=== PATIENT | female | born 1975 ===

== ENCOUNTER 2017-06-26 15:27 | Observation (INO) | payer MEDICAID ==
[2017-06-26] MEDS ORDERED: Sodium Chloride 0.9% 1,000 ML IV STA (15:45)
[2017-06-26 16:20] LABS: URINE BILIRUBIN SMALL (NEGATIVE); URINE BLOOD SMALL (NEGATIVE); URINE GLUCOSE (UA) NEGATIVE (NEGATIVE); URINE KETONE 40 mg/dL (NEGATIVE); URINE LEUKOCYTE ESTERASE NEGATIVE Leu/uL (NEGATIVE); URINE PROTEIN NEGATIVE mg/dL (<30 mg/dL); URINE UROBILINOGEN 0.2 E.U./dL (<1 E.U./dL)
[2017-06-26 16:27] LABS: URINE APPEARANCE SL CLOUDY (CLEAR); URINE COLOR YELLOW (YELLOW)
[2017-06-26 16:44] LABS: URINE BACTERIA MANY (NEG)
--- NOTE | 2017-06-26 16:45 | ED PDOC ---
"Arrival/HPI - General Chief Complaint: Abdominal Pain Time Seen by Provider: 06/26/17 15:31 Historian: Patient - History of Present Illness Narrative History of Present Illness (Text): 06/26/17 16:43 42-year-old female presents today with worsening diffuse abdominal pain. Patient states the pain started yesterday and has been gradually worsening. Patient states she was seen at another hospital and was told that she had only an ovarian cyst. Patient states she does have a history of gastritis. Patient states she has nausea without vomiting. The patient is complaining of diarrhea. She is complaining of diffuse abdominal pain that does not radiate to the back. She denies any urinary symptoms. Denies vaginal bleeding or vaginal discharge patient denies chest pain or shortness of breath. No other complaints. Time/Duration: Other (2 days) Symptom Onset: Sudden Symptom Course: Worsening Quality: Aching Severity Level: Moderate Past Medical History - Provider Review Nursing Documentation Reviewed: Yes - Travel History Have you recently traveled outside [place] w/in the past 3 mons?: No - Tetanus Immunization Tetanus Immunization: Unknown - Cardiac Hx Cardiac Disorders: No - Pulmonary Hx Respiratory Disorders: Yes Hx Asthma: Yes - Neurological Hx Neurological Disorder: No - HEENT Hx HEENT Disorder: No Hx Blind: No - Renal Hx Renal Disorder: No - Endocrine/Metabolic Hx Endocrine Disorders: No - Hematological/Oncological Hx Blood Disorders: No - Integumentary Hx Dermatological Disorder: No - Musculoskeletal/Rheumatological Hx Musculoskeletal Disorders: No - Gastrointestinal Hx Gastrointestinal Disorders: Yes Hx Gastritis: Yes - Genitourinary/Gynecological Hx Genitourinary Disorders: No - Psychiatric Hx Psychophysiologic Disorder: No Hx Substance Use: No Family/Social History - Physician Review Nursing Documentation Reviewed: Yes Family/Social History: Unknown Family HX Smoking Status: Light Smoker < 10 Cigarettes Daily Hx Alcohol Use: No Hx Substance Use: No Allergies/Home Meds Allergies/Adverse Reactions: Allergies Penicillins Adverse Reaction (Verified 06/26/17 15:39) VOMITING Home Medications: Home Meds Medication Instructions Recorded Confirmed No Known Home Med 06/26/17 06/26/17 Review of Systems - Review of Systems Constitutional: absent: Fatigue, Fevers Respiratory: absent: SOB, Cough Cardiovascular: absent: Chest Pain, Palpitations Gastrointestinal: Abdominal Pain, Diarrhea, Nausea. absent: Constipation, Vomiting Genitourinary Female: absent: Dysuria, Frequency, Hematuria, Vaginal Bleeding, Vaginal Discharge Musculoskeletal: absent: Arthralgias, Back Pain, Neck Pain Skin: absent: Rash, Pruritis Psychiatric: absent: Anxiety, Depression Physical Exam Vital Signs Reviewed: Yes Vital Signs Temp Pulse Resp BP Pulse Ox 06/26/17 20:12 68 18 145/90 100 06/26/17 18:27 73 18 118/80 100 06/26/17 15:40 97.8 F 73 16 128/83 99 Temperature: Afebrile Blood Pressure: Normal Pulse: Regular Respiratory Rate: Normal Appearance: Positive for: Well-Appearing, Non-Toxic, Comfortable Pain Distress: None Mental Status: Positive for: Alert and Oriented X 3 - Systems Exam Head: Present: Atraumatic Mouth: Present: Moist Mucous Membranes Neck: Present: Normal Range of Motion Respiratory/Chest: Present: Clear to Auscultation, Good Air Exchange. No: Respiratory Distress, Accessory Muscle Use Cardiovascular: Present: Regular Rate and Rhythm, Normal S1, S2. No: Murmurs Abdomen: Present: Tenderness (Diffuse abdominal tenderness), Normal Bowel Sounds , Guarding. No: Distention, Peritoneal Signs, Rebound Back: Present: Normal Inspection. No: CVA Tenderness, Midline Tenderness Upper Extremity: Present: Normal Inspection Lower Extremity: Present: Normal Inspection Neurological: Present: GCS=15, Speech Normal Skin: Present: Warm, Dry, Normal Color. No: Rashes Psychiatric: Present: Alert, Oriented x 3 Medical Decision Making ED Course and Treatment: 06/26/17 16:55 Patient is nontoxic well appearing with stable vital signs presenting with severe abdominal pain/nausea/diarrhea. CBC wnl CMP wnl Lipase wnl Urinalysis + trace leukocytes CAT scan: FINDINGS: Lower thorax: Heart size is normal. There is minimal atelectasis/scarring at the lung bases. ABDOMEN: Liver: There is fatty infiltration of the liver. Gallbladder and bile ducts: Gallbladder is distended with multiple layering stones. Common duct is unremarkable. Pancreas: unremarkable Spleen: unremarkable Adrenals: unremarkable Kidneys and ureters: unremarkable Stomach and bowel: Stomach is incompletely distended which accentuates the gastric wall.Bowel rotation is normal. There are dilated small bowel loops in the left midabdomen with mild wall and fold thickening. There is marked mid, distal and terminal ileal wall thickening. There is inflammation and JAMIR, VAS | Final Radiology Report CONFIDENTIALITY STATEMENT This report is intended only for use by the referring physician, and only in accordance with law. If you received this in error, call [phone]. Page 2 of 2 hyperemia in the adjacent mesentery. Appendix is unremarkable.Colon is incompletely distended which limits evaluation. There is cecal and ascending colon wall thickening. There is streak artifact from dense contrast in the colon. There is scattered diverticula Appendix: See stomach and bowel PELVIS: Bladder: unremarkable Reproductive: Uterus and adnexal structures are unremarkable. ABDOMEN and PELVIS: Intraperitoneal space: There is free fluid in the cul-de-sac. There is fluid in the right lower quadrant above the base of the cecum. There is minimal fluid in both colic gutters. There is no free air. Bones/joints: There are no acute osseous abnormalities. Soft tissues: unremarkable Vasculature: Vascular structures are unremarkable. There are pelvic varices Lymph nodes: There are mildly prominent periaortic nodes. There are mildly enlarged right lower quadrant mesenteric nodes. IMPRESSION: Enterocolitis, probable reactive adenopathy In Additional findings as described above. Patient reassessment:pt with continued abdominal tenderness; severe/diffuse tenderness; morphine added; cipro and flagyl ordered iV Discussed all results with patient in depth case discussed with dr. culver; will admit observational status to med/surg for intractable abdominal pain/colitis. Impression: Abdominal pain, colitis med/surg - Lab Interpretations Lab Results: 06/26/17 16:30 06/26/17 16:30 Lab Results 06/26/17 16:30: WBC 9.5, RBC 4.90, Hgb 14.1, Hct 42.0, MCV 85.7, MCH 28.8, MCHC 33.6, RDW 13.2, Plt Count 256, MPV 11.3 H, Gran % 88.2 H, Lymph % (Auto) 7.9 L, Morton % (Auto) 3.3, Eos % (Auto) 0.5 L, Baso % (Auto) 0.1, Gran # 8.38 H, Lymph # 0.8 L, Morton # 0.3, Eos # 0.1, Baso # 0.01 06/26/17 16:30: Sodium 141, Potassium 4.4, Chloride 105, Carbon Dioxide 29, Anion Gap 11, BUN 9, Creatinine 0.8, Est GFR ( Amer) > 60, Est GFR (Non- Af Amer) > 60, Random Glucose 104, Calcium 8.5, Total Bilirubin 0.4, AST 21, ALT 27, Alkaline Phosphatase 48, Total Protein 6.1, Albumin 3.6, Globulin 2.5, Albumin/Globulin Ratio 1.4, Lipase 41 06/26/17 16:00: Urine Color Yellow, Urine Appearance Sl cloudy, Urine pH 6.0, Ur Specific [place] >= 1.030, Urine Protein Negative, Urine Glucose (UA) Negative, Urine Ketones 40 H, Urine Blood Small H, Urine Nitrate Negative, Urine Bilirubin Small H, Urine Urobilinogen 0.2, Ur Leukocyte Esterase Negative , Urine RBC 2 - 5, Urine WBC 1 - 3, Ur Epithelial Cells 3 - 4, Urine Bacteria Many - RAD Interpretation Radiology Orders: 06/26/17 16:02 ABD & PELVIS IV CONTRAST ONLY [CT] Stat - Medication Orders Current Medication Orders: Ciprofloxacin (Cipro 400mg/200ml Dsw) 400 mg in 200 mls @ 133.3 mls/hr IVPB STAT STA PRN Reason: Protocol Stop: 06/26/17 21:11 Metronidazole (Flagyl) 500 mg in 100 mls @ 100 mls/hr IVPB STAT STA PRN Reason: Protocol Stop: 06/26/17 20:41 Last Admin: 06/26/17 20:07 Dose: 100 mls/hr eMAR Start Stop Document 06/26/17 20:07 GMD (Rec: 06/26/17 20:07 D [id number]) Intravenous Solution Start Date 06/26/17 Start Time 20:07 End Date 06/26/17 End time 21:07 Total Infusion Time 60 Discontinued Medications Famotidine (Pepcid) 20 mg IVP STAT STA Stop: 06/26/17 16:37 Last Admin: 06/26/17 16:47 Dose: 20 mg IVP Administration Document 06/26/17 16:47 GMD (Rec: 06/26/17 16:47 GMD [id number]) Charges for Administration # of IVP Administrations 1 Sodium Chloride (Sodium Chloride 0.9%) 1,000 mls @ 999 mls/hr IV .Q1H1M STA Stop: 06/26/17 16:45 Last Admin: 06/26/17 16:40 Dose: 999 mls/hr eMAR Start Stop Document 06/26/17 16:40 GMD (Rec: 06/26/17 16:40 GMD [id number]) Intravenous Solution Start Date 06/26/17 Start Time 16:40 End Date 06/26/17 End time 17:41 Total Infusion Time 61 Iohexol (Omnipaque 350 100 Ml) Confirm Administered Dose 350 mg .ROUTE .STK-MED ONE Stop: 06/26/17 17:39 Ketorolac Tromethamine (Toradol) 30 mg IVP STAT STA Stop: 06/26/17 16:37 Last Admin: 06/26/17 16:40 Dose: 30 mg MAR Pain Assessment Document 06/26/17 16:40 GMD (Rec: 06/26/17 16:40 GMD [id number]) Pain Reassessment Is this a pain reassessment? No Sleep Is patient sleeping during reassessment? No Presence of Pain Presence of Pain Yes IVP Administration Document 06/26/17 16:40 GMD (Rec: 06/26/17 16:40 GMD [id number]) Charges for Administration # of IVP Administrations 1 Morphine Sulfate (Morphine) 4 mg IVP STAT STA Stop: 06/26/17 19:42 Last Admin: 06/26/17 20:07 Dose: 4 mg MAR Pain Assessment Document 06/26/17 20:07 GMD (Rec: 06/26/17 20:07 GMD [id number]) Pain Reassessment Is this a pain reassessment? No Sleep Is patient sleeping during reassessment? No Presence of Pain Presence of Pain Yes IVP Administration Document 06/26/17 20:07 GMD (Rec: 06/26/17 20:07 GMD [id number]) Charges for Administration # of IVP Administrations 1 Disposition/Present on Arrival - Present on Arrival Any Indicators Present on Arrival: No History of DVT/PE: No History of Uncontrolled Diabetes: No Urinary Catheter: No History of Decub. Ulcer: No History Surgical Site Infection Following: None - Disposition Have Diagnosis and Disposition been Completed?: Yes Diagnosis: Colitis, Intractable abdominal pain Disposition: HOSPITALIZED Disposition Time: 20:17 Patient Plan: Observation Condition: FAIR Referrals: Caleb Retana [Primary Care Provider] - Follow up with primary Forms: Silith[employer]IO (Albanian)"
[2017-06-26 17:00] LABS: ALB/GLOB RATIO 1.4 (1.1-1.8); ALKALINE PHOSPHATASE 48 U/L (38-126); ALT/SGPT 27 U/L (7-56); AST/SGOT 21 U/L (14-36); BILIRUBIN,TOTAL 0.4 mg/dL (0.2-1.3); BLOOD UREA NITROGEN 9 mg/dL (7-21); CALCIUM 8.5 mg/dL (8.4-10.5); CARBON DIOXIDE 29 mmol/L (21-33); CHLORIDE 105 mmol/L (98-107); GFR AFRICAN-AMERICAN > 60; GLUCOSE,RANDOM 104 mg/dL (70-110); LIPASE 41 U/L (23-300); POTASSIUM 4.4 mmol/L (3.6-5.0); SODIUM 141 mmol/L (132-148); TOTAL PROTEIN 6.1 g/dL (5.8-8.3)
[2017-06-26] MEDS ORDERED: Iohexol 350 MG/100 ML VIAL ONE (17:38)
--- NOTE | 2017-06-26 18:55 | CT ---
EXAM: CT Abdomen and Pelvis With Intravenous Contrast EXAM DATE/TIME: 06/26/2017 4:02 PM CLINICAL HISTORY: 42 years old, female; Pain; Abdominal pain; Patient HX: Diffuse abdominal pain TECHNIQUE: Axial computed tomography images of the abdomen and pelvis with intravenous contrast. All CT scans at this facility use one or more dose reduction techniques, viz.: automated exposure control; ma/kV adjustment per patient size (including targeted exams where dose is matched to indication; i.e. head); or iterative reconstruction technique. Coronal and sagittal reformatted images were created and reviewed. CONTRAST: 96 mL of OMIPAQUE 350 administered intravenously. COMPARISON: There are no prior studies for comparison. FINDINGS: Lower thorax: Heart size is normal. There is minimal atelectasis/scarring at the lung bases. ABDOMEN: Liver: There is fatty infiltration of the liver. Gallbladder and bile ducts: Gallbladder is distended with multiple layering stones. Common duct is unremarkable. Pancreas: unremarkable Spleen: unremarkable Adrenals: unremarkable Kidneys and ureters: unremarkable Stomach and bowel: Stomach is incompletely distended which accentuates the gastric wall.Bowel rotation is normal. There are dilated small bowel loops in the left midabdomen with mild wall and fold thickening. There is marked mid, distal and terminal ileal wall thickening. There is inflammation and hyperemia in the adjacent mesentery. Appendix is unremarkable.Colon is incompletely distended which limits evaluation. There is cecal and ascending colon wall thickening. There is streak artifact from dense contrast in the colon. There is scattered diverticula Appendix: See stomach and bowel PELVIS: Bladder: unremarkable Reproductive: Uterus and adnexal structures are unremarkable. ABDOMEN and PELVIS: Intraperitoneal space: There is free fluid in the cul-de-sac. There is fluid in the right lower quadrant above the base of the cecum. There is minimal fluid in both colic gutters. There is no free air. Bones/joints: There are no acute osseous abnormalities. Soft tissues: unremarkable Vasculature: Vascular structures are unremarkable. There are pelvic varices Lymph nodes: There are mildly prominent periaortic nodes. There are mildly enlarged right lower quadrant mesenteric nodes. IMPRESSION: Enterocolitis, probable reactive adenopathy In Additional findings as described above.
[2017-06-26 19:30] LABS: BASO # 0.01 K/mm3 (0.0-2.0); BASO % 0.1 % (0.0-3.0); EOS # 0.1 (0.0-0.7); EOS % 0.5 % (1.5-5.0); GRAN # 8.38 (1.4-6.5); GRAN % 88.2 % (50.0-68.0); LYMPH # 0.8 (1.2-3.4); LYMPH % 7.9 % (22.0-35.0); MEAN CELL VOLUME 85.7 fl (80.0-105.0); MEAN CORPUSCULAR HEMOGLOBIN 28.8 pg (25.0-35.0); MEAN CORPUSCULAR HGB CONC 33.6 g/dl (31.0-37.0); MEAN PLATELET VOLUME 11.3 fl (7.0-11.0); MONO # 0.3 (0.1-0.6); MONO % 3.3 % (1.0-6.0); RED CELL DISTRIBUTION WIDTH 13.2 % (11.5-14.5); WHITE BLOOD COUNT 9.5 10^3/ul (4.5-11.0)
[2017-06-26] MEDS ORDERED: Morphine 4 mg/ml ISec IVP STA (19:41)
[2017-06-26] MEDS ORDERED: Ciprofloxacin 400mg/200ml D5W 400 MG/200 ML BAG IVPB STA (19:41)
[2017-06-26] MEDS ORDERED: metroNIDAZOLE IV 500 mg/100 ml 500 MG/100 ML BAG IVPB STA (19:42)
--- NOTE | 2017-06-26 22:36 | CP.PCM.HP ---
<JaylaRanjith Hilda - Last Filed: 06/27/17 01:38> History of Present Illness - History of Present Illness History of Present Illness: Internal Medicine H&P - Health Counselor Resident - RANJITH KNIGHT DO PGY - 1 HPI: Pt is a 42 F w/ a PMHx of supposed hypoglycemia, supposed stroke from hypoglycemia, and gastritis, presents with 2 day duration of intractible abdominal pain and n/v/d. She states that the pain feels the same as other bouts of gastritis, just more intense. Patient has also had a few episodes of nbnb vomiting, last at 3 PM this afternoon. Patient has also been having watery diarrhea. Patient does not recall eating anything out of the ordinary. Patient denies hematemesis or hematochezia. Patient further denies being on any antibiotics in the recent past. Pt denies f/ch/cp/sob. No further complaints PSHx: Pt denies PMHx: Pt states that she has bouts of hypoglycemia, which she attributes to not eating. She also stated to the nursing staff that she had a stroke due to her hypoglycemia? All: PCN SocHx: Pt admits to smoking ~10 cigs a day FamHx: Non-contributory Present on Admission - Present on Admission Any Indicators Present on Admission: No History of DVT/PE: No History of Uncontrolled Diabetes: No Urinary Catheter: No Decubitus Ulcer Present: No Review of Systems - Hematologic/Lymphatic Additional comments: ROS: Constitutional: pt denies fever, chills, generalized weakness ENT: pt denies dysphagia, otalgia, hearing deficit, rhinorrhea Eyes: pt denies sudden loss of vision, diplopia, blurred vision MSK: pt denies muscle stiffness, joint pain, extremity cramping Cardio: pt denies sob, heart murmur, cp Pulm: pt denies cough, hemoptysis, wheeze GI: +SEE HPI : pt denies burning on urination, urinary frequency, hematuria, urinary urgency Neuro: pt denies paresis, paresthesia, dizziness, gage, numbness, tingling Derm: pt denies skin changes, lesions, nail changes Endo: pt denies intolerance to heat/cold, diaphoresis, night sweats, polydipsia Psych: pt denies anxiety, depression, mood changes Past Patient History - Infectious Disease Hx of Infectious Diseases: None - Tetanus Immunizations Tetanus Immunization: Unknown - Past Social History Smoking Status: Light Smoker < 10 Cigarettes Daily - CARDIAC Hx Cardiac Disorders: No - PULMONARY Hx Respiratory Disorders: Yes Hx Asthma: Yes - NEUROLOGICAL Hx Neurological Disorder: No - HEENT Hx HEENT Problems: No Hx Blind: No - RENAL Hx Chronic Kidney Disease: No - ENDOCRINE/METABOLIC Hx Endocrine Disorders: No - HEMATOLOGICAL/ONCOLOGICAL Hx Blood Disorders: No - INTEGUMENTARY Hx Dermatological Problems: No - MUSCULOSKELETAL/RHEUMATOLOGICAL Hx Musculoskeletal Disorders: No - GASTROINTESTINAL Hx Gastrointestinal Disorders: Yes Hx Gastritis: Yes - GENITOURINARY/GYNECOLOGICAL Hx Genitourinary Disorders: No - PSYCHIATRIC Hx Psychophysiologic Disorder: No Hx Substance Use: No - SURGICAL HISTORY Hx Surgeries: Yes (LEEP) Meds Allergies/Adverse Reactions: Allergies Allergy/AdvReac Type Severity Reaction Status Date / Time Penicillins AdvReac VOMITING Verified 06/26/17 15:39 Physical Exam - Additional Findings Additional findings: Phys Exam: VS as below Constitutional: a&o x 4, nad Head and Neck: neck supple, no jvd, trachea midline, carotid midline, no cervical/head mass Eyes: jony, nonicteric sclera, eom intact ENT: auditory acuity grossly intact, throat not congested, no nasal deformity Cardio: rrr, no m/r/g, no carotid bruit, nml s1, s2 Pulm: no accessory muscle use, equal nml breath sounds bilaterally, ctab Abd: +Exquisite TTP in all 4 quadrants, moreso epigastrically; s/nd, nbs X 4q; Derm: no rashes, no ulcers, no lesions Extr: no edema, no cyanosis, no calf tenderness, no lesions, no varicosities Neuro: cn II-XII grossly intact, ue and le 5/5 muscle strength bilaterally, no los ue, le bilaterally and core Results - Vital Signs Recent Vital Signs: Last Vital Signs Temp 97.8 F 06/26/17 15:40 Pulse 68 06/26/17 20:12 Resp 18 06/26/17 20:12 BP 145/90 06/26/17 20:12 Pulse Ox 100 06/26/17 20:12 - Labs Result Diagrams: 06/26/17 16:30 06/26/17 16:30 Labs: Laboratory Results - last 24 hr 06/26/17 06/26/1706/26/17 16:00 16:30 16:30 WBC 9.5 RBC 4.90 Hgb 14.1 Hct 42.0 MCV 85.7 MCH 28.8 MCHC 33.6 RDW 13.2 Plt Count 256 MPV 11.3 H Gran % 88.2 H Lymph % (Auto) 7.9 L [place] % (Auto) 3.3 Eos % (Auto) 0.5 L Baso % (Auto) 0.1 Gran # 8.38 H Lymph # 0.8 L [place] # 0.3 Eos # 0.1 Baso # 0.01 Sodium 141 Potassium 4.4 Chloride 105 Carbon Dioxide 29 Anion Gap 11 BUN 9 Creatinine 0.8 Est GFR ( Amer) > 60 Est GFR (Non-Af Amer) > 60 Random Glucose 104 Calcium 8.5 Total Bilirubin 0.4 AST 21 ALT 27 Alkaline Phosphatase 48 Total Protein 6.1 Albumin 3.6 Globulin 2.5 Albumin/Globulin Ratio 1.4 Lipase 41 Urine Color Yellow Urine Appearance Sl cloudy Urine pH 6.0 Ur Specific [place] >= 1.030 Urine Protein Negative Urine Glucose (UA) Negative Urine Ketones 40 H Urine Blood Small H Urine Nitrate Negative Urine Bilirubin Small H Urine Urobilinogen 0.2 Ur Leukocyte Esterase Negative Urine RBC 2 - 5 Urine WBC 1 - 3 Ur Epithelial Cells 3 - 4 Urine Bacteria Many Assessment & Plan - Assessment and Plan (Free Text) Assessment: Intractible Nausea and Vomiting with Pain, Likely 2/2 Colitis VS Gastritis - Fluids - NPO - Cipro - Flagyl - Morphine q 6h for severe pain; Toradol q6h for moderate pain; Tylenol q6h for mild pain - GI C/s: Dr. Del Rio - CT Abdomen shows enterocolitis Hypoglycemia, Patient Reported - FSG q6h GI/DVT PPHXS - Protonix/Heparin <Shaw Almaguer - Last Filed: 06/27/17 07:33> Results - Vital Signs Recent Vital Signs: Last Vital Signs Temp 97.8 F 06/26/17 15:40 Pulse 68 06/26/17 20:12 Resp 18 06/26/17 21:39 BP 145/90 06/26/17 20:12 Pulse Ox 100 06/26/17 20:12 - Labs Result Diagrams: 06/26/17 16:30 06/26/17 16:30 Labs: Laboratory Results - last 24 hr 06/26/17 06/27/17 06/27/17 22:18 00:41 05:34 POC Glucose (mg/dL) 76 97 75 Attending/Attestation - Attestation I have personally seen and examined this patient.: Yes I have fully participated in the care of the patient.: Yes I have reviewed all pertinent clinical information: Yes Notes (Text): 06/27/17 07:33 Patient was seen when she was in the ER. Agree with history, physical examination , assessment and plan.
[2017-06-26] MEDS: Sodium Chloride 0.9% 1,000 ML IV SCH (22:51)
[2017-06-27] MEDS ORDERED: Morphine 2 mg/ml ISec IVP PRN (01:45)
--- NOTE | 2017-06-27 11:24 | CP.PCM.PN ---
<Judson Orta - Last Filed: 06/27/17 13:53> Subjective - Date & Time of Evaluation Date of Evaluation: 06/27/17 Time of Evaluation: 09:15 - Subjective Subjective: Patient seen and examined at bedside. No acute overnight events. Patient resting comfortably in bed. Offers no new complaints at this time. States abdominal pain has improved since admission. Expresses desire to eat. Denies f/c /p/sob//n/v/diarrhea/constipation/urinary symptoms. Objective - Vital Signs/Intake and Output Vital Signs (last 24 hours): Temp Pulse Resp BP Pulse Ox 97.8 F 63 20 116/85 97 06/27/17 07:30 06/27/17 07:30 06/27/17 07:30 06/27/17 07:30 06/27/17 07:30 Intake and Output: 06/27/17 06/27/17 06:59 18:59 Intake Total 0 Balance 0 - Medications Medications: Current Medications Acetaminophen (Tylenol 325mg Tab) 650 mg PO Q6H PRN PRN Reason: MILD PAIN Heparin Sodium (Porcine) (Heparin) 5,000 units SC Q8 AMITA PRN Reason: Protocol Last Admin: 06/27/17 06:35 Dose: 5,000 units Sodium Chloride (Sodium Chloride 0.9%) 1,000 mls @ 100 mls/hr IV .Q10H [facility] Last Admin: 06/26/17 22:51 Dose: 100 mls/hr Ketorolac Tromethamine (Toradol) 15 mg IVP PRN PRN PRN Reason: Pain, moderate (4-7) Morphine Sulfate (Morphine) 1 mg IVP Q6 PRN PRN Reason: Pain, severe (8-10) - Additional Findings Additional findings: Constitutional: a&o x 4, nad Head and Neck: neck supple, no jvd, trachea midline, carotid midline, no cervical/head mass Eyes: jony, nonicteric sclera, eom intact ENT: auditory acuity grossly intact, throat not congested, no nasal deformity Cardio: rrr, no m/r/g, no carotid bruit, nml s1, s2 Pulm: no accessory muscle use, equal nml breath sounds bilaterally, ctab Abd: mild epigastric tenderness on palpation; s/nd, nbs X 4q; Derm: no rashes, no ulcers, no lesions Extr: no edema, no cyanosis, no calf tenderness, no lesions, no varicosities Neuro: cn II-XII grossly intact, ue and le 5/5 muscle strength bilaterally, no los ue, le bilaterally and core Assessment and Plan - Assessment and Plan (Free Text) Assessment: Patient is a 42 year old female with a 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 Intractible Nausea and Vomiting with Pain - Likely 2/2 Colitis VS Gastritis - CT Abdomen shows enterocolitis - IVF - clear liquid diet- will advance and if patient tolerates diet she can be discharged home on PO antibiotics Cipro and Flagyl pending GI input - Morphine q 6h for severe pain; Toradol q6h for moderate pain; Tylenol q6h for mild pain - GI C/s: Dr. Del [place] Hypoglycemia, Patient Reported - last glucose 104 and FSG q6h GI/DVT PPHXS - Protonix/Heparin Patient seen, examined, case discussed with, and plan approved by attending physician, Dr Chakraborty. <Robyn Chakraborty - Last Filed: 06/27/17 16:41> Objective - Vital Signs/Intake and Output Vital Signs (last 24 hours): Temp Pulse Resp BP Pulse Ox 97.8 F 63 20 116/85 97 06/27/17 07:30 06/27/17 07:30 06/27/17 07:30 06/27/17 07:30 06/27/17 07:30 Intake and Output: 06/27/17 06/27/17 06:59 18:59 Intake Total 0 300 Output Total 0 Balance 0 300 - Medications Medications: Current Medications Acetaminophen (Tylenol 325mg Tab) 650 mg PO Q6H PRN PRN Reason: MILD PAIN Heparin Sodium (Porcine) (Heparin) 5,000 units SC Q8 AMITA PRN Reason: Protocol Last Admin: 06/27/17 13:53 Dose: 5,000 units Sodium Chloride (Sodium Chloride 0.9%) 1,000 mls @ 100 mls/hr IV .Q10H [facility] Last Admin: 06/27/17 13:53 Dose: 100 mls/hr Ketorolac Tromethamine (Toradol) 15 mg IVP PRN PRN PRN Reason: Pain, moderate (4-7) Morphine Sulfate (Morphine) 1 mg IVP Q6 PRN PRN Reason: Pain, severe (8-10) Attending/Attestation - Attestation I have personally seen and examined this patient.: Yes I have fully participated in the care of the patient.: Yes I have reviewed all pertinent clinical information, including history, physical exam and plan: Yes Notes (Text): I have seen and examined the patient at bedside. Agree with the above note with the following additions/ exceptions: Briefly this is 42 year old female with history of TIA, recurrent hypoglycemia and gastritis who was admitted for epigastric pain, nause, vomiting, diarrhea and found to have colitis on CT scan. Patient's abdominal pain has improved at this time and she wants to eat. She has mild epigastric tenderness. Stool for cdiff is pending. Patient will be started on clear liquid diet and we will advance the diet as tolerated. GI consult is pending. Upon discharge patient will follow up with Dr Mazin Garcia. Dr Robyn Chakraborty
[2017-06-27] MEDS: Sodium Chloride 0.9% 1,000 ML IV SCH (13:53)
[2017-06-27 21:16] VITALS: O2SAT 98
--- NOTE | 2017-06-28 04:55 | CP.PCM.DIS ---
<Judson Orta - Last Filed: 06/28/17 11:15> Provider - Provider Date of Admission: 06/27/17 17:17 Attending physician: Robyn Chakraborty MD Primary care physician: Caleb Retana MD Consults: GI- Dr. Oh Time Spent in preparation of Discharge (in minutes): 30 Diagnosis - Discharge Diagnosis (1) Colitis Status: Acute Priority: Medium (2) Intractable abdominal pain Status: Acute Priority: Medium Hospital Course - Lab Results Lab Results: Most Recent Lab Values WBC 9.5 10^3/ul (4.5-11.0) 06/26/17 16:30 RBC 4.90 10^6/uL (3.5-6.1) 06/26/17 16:30 Hgb 14.1 g/dL (12.0-16.0) 06/26/17 16:30 Hct 42.0 % (36.0-48.0) 06/26/17 16:30 MCV 85.7 fl (80.0-105.0) 06/26/17 16:30 MCH 28.8 pg (25.0-35.0) 06/26/17 16:30 MCHC 33.6 g/dl (31.0-37.0) 06/26/17 16:30 RDW 13.2 % (11.5-14.5) 06/26/17 16:30 Plt Count 256 10^3/uL (120.0-450.0) 06/26/17 16:30 MPV 11.3 fl (7.0-11.0) H 06/26/17 16:30 Gran % 88.2 % (50.0-68.0) H 06/26/17 16:30 Lymph % (Auto) 7.9 % (22.0-35.0) L 06/26/17 16:30 [place] % (Auto) 3.3 % (1.0-6.0) 06/26/17 16:30 Eos % (Auto) 0.5 % (1.5-5.0) L 06/26/17 16:30 Baso % (Auto) 0.1 % (0.0-3.0) 06/26/17 16:30 Gran # 8.38 (1.4-6.5) H 06/26/17 16:30 Lymph # 0.8 (1.2-3.4) L 06/26/17 16:30 [place] # 0.3 (0.1-0.6) 06/26/17 16:30 Eos # 0.1 (0.0-0.7) 06/26/17 16:30 Baso # 0.01 K/mm3 (0.0-2.0) 06/26/17 16:30 Sodium 141 mmol/L (132-148) 06/26/17 16:30 Potassium 4.4 mmol/L (3.6-5.0) 06/26/17 16:30 Chloride 105 mmol/L (98-107) 06/26/17 16:30 Carbon Dioxide 29 mmol/L (21-33) 06/26/17 16:30 Anion Gap 11 (10-20) 06/26/17 16:30 BUN 9 mg/dL (7-21) 06/26/17 16:30 Creatinine 0.8 mg/dL (0.5-1.4) 06/26/17 16:30 Est GFR ( Amer) > 60 06/26/17 16:30 Est GFR (Non-Af Amer) > 60 06/26/17 16:30 POC Glucose (mg/dL) 65 mg/dL (65-110) 06/27/17 21:05 Random Glucose 104 mg/dL (70-110) 06/26/17 16:30 Calcium 8.5 mg/dL (8.4-10.5) 06/26/17 16:30 Total Bilirubin 0.4 mg/dL (0.2-1.3) 06/26/17 16:30 AST 21 U/L (14-36) 06/26/17 16:30 ALT 27 U/L (7-56) 06/26/17 16:30 Alkaline Phosphatase 48 U/L (38-126) 06/26/17 16:30 Total Protein 6.1 g/dL (5.8-8.3) 06/26/17 16:30 Albumin 3.6 g/dL (3.0-4.8) 06/26/17 16:30 Globulin 2.5 gm/dL 06/26/17 16:30 Albumin/Globulin Ratio 1.4 (1.1-1.8) 06/26/17 16:30 Lipase 41 U/L (23-300) 06/26/17 16:30 Urine Color Yellow (YELLOW) 06/26/17 16:00 Urine Appearance Sl cloudy (CLEAR) 06/26/17 16:00 Urine pH 6.0 (4.7-8.0) 06/26/17 16:00 Ur Specific [place] >= 1.030 (1.005-1.035) 06/26/17 16:00 Urine Protein Negative mg/dL (<30 mg/dL) 06/26/17 16:00 Urine Glucose (UA) Negative mg/dL (NEGATIVE) 06/26/17 16:00 Urine Ketones 40 mg/dL (NEGATIVE) H 06/26/17 16:00 Urine Blood Small (NEGATIVE) H 06/26/17 16:00 Urine Nitrate Negative (NEGATIVE) 06/26/17 16:00 Urine Bilirubin Small (NEGATIVE) H 06/26/17 16:00 Urine Urobilinogen 0.2 E.U./dL (<1 E.U./dL) 06/26/17 16:00 Ur Leukocyte Esterase Negative Dixie/uL (NEGATIVE) 06/26/17 16:00 Urine RBC 2 - 5 /hpf (0-2) 06/26/17 16:00 Urine WBC 1 - 3 /hpf (0-6) 06/26/17 16:00 Ur Epithelial Cells 3 - 4 /hpf (0-5) 06/26/17 16:00 Urine Bacteria Many (NEG) 06/26/17 16:00 - Hospital Course Hospital Course: Patient is a 42 year old female with a 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 With the use of physical examinations, lab work, and imaging the patient was diagnosed with and treated for colitis. During their hospital stay the patient was seen by GI, Dr. Del Rio whose recommendations were appreciated. During their hospital stay the patient underwent a CT which showed colitis and reactive adenopathy. Patient was treated with intravenous fluids and antibiotics. At this time the patient is medically stable for discharge. Patient understands and appreciates discharge plan. Patient instructed to follow up with primary care physicians and referrals within one week from discharge. Furthermore the patient is instructed to take medications as prescribed and to return to emergency room for evaluation of intractable headache, fever, chills, dizziness, chest pain, shortness of breath, abdominal pain, nausea, vomiting, diarrhea, constipation, and urinary symptoms. This is a brief summary of the patient hospital course. Please see patient chart for full details. Discharge Exam - Additional Findings Additional findings: Constitutional: a&o x 4, nad Head and Neck: neck supple, no jvd, trachea midline, carotid midline, no cervical/head mass Eyes: jony, nonicteric sclera, eom intact ENT: auditory acuity grossly intact, throat not congested, no nasal deformity Cardio: rrr, no m/r/g, no carotid bruit, nml s1, s2 Pulm: no accessory muscle use, equal nml breath sounds bilaterally, ctab Abd: no tenderness on palpation; s/nd, nbs X 4q; Derm: no rashes, no ulcers, no lesions Extr: no edema, no cyanosis, no calf tenderness, no lesions, no varicosities Neuro: cn II-XII grossly intact, ue and le 5/5 muscle strength bilaterally, no los ue, le bilaterally and core Discharge Plan - Discharge Medications Prescriptions: Ciprofloxacin [Cipro] 500 mg PO Q12 7 Days tab metroNIDAZOLE [Flagyl] 500 mg PO Q8 7 Days tab - Follow Up Plan Condition: FAIR Disposition: HOME/ ROUTINE Instructions: Acute Abdominal Pain (DC) Additional Instructions: Patient Instructions: Take medications as prescribed. Follow up with PMD and referrals within 1 week from discharge. Return to emergency room for evaluation of intractable headache, fever, chills, dizziness, chest pain, shortness of breath, abdominal pain, nausea, vomiting, diarrhea, constipation, and urinary symptoms. Referrals: Caleb Retana [Primary Care Provider] - Varghese Del Rio MD [Staff Provider] - <Robyn Chakraborty - Last Filed: 07/01/17 18:27> Provider - Provider Date of Admission: 06/26/17 20:06 Attending physician: Robyn Chakraborty MD Primary care physician: Caleb Retana MD Time Spent in preparation of Discharge (in minutes): 35 Hospital Course - Lab Results Lab Results: Micro Results 06/26/17 23:59 Blood Blood Culture - Preliminary NO GROWTH AFTER 4 DAYS 06/26/17 20:45 Blood Blood Culture - Preliminary NO GROWTH AFTER 4 DAYS Most Recent Lab Values WBC 5.2 10^3/ul (4.5-11.0) D 06/28/17 06:51 RBC 4.12 10^6/uL (3.5-6.1) 06/28/17 06:51 Hgb 11.4 g/dL (12.0-16.0) L D 06/28/17 06:51 Hct 35.2 % (36.0-48.0) L 06/28/17 06:51 MCV 85.4 fl (80.0-105.0) 06/28/17 06:51 MCH 27.7 pg (25.0-35.0) 06/28/17 06:51 MCHC 32.4 g/dl (31.0-37.0) 06/28/17 06:51 RDW 13.3 % (11.5-14.5) 06/28/17 06:51 Plt Count 206 10^3/uL (120.0-450.0) 06/28/17 06:51 MPV 10.8 fl (7.0-11.0) 06/28/17 06:51 Gran % 64.9 % (50.0-68.0) 06/28/17 06:51 Lymph % (Auto) 25.4 % (22.0-35.0) 06/28/17 06:51 [place] % (Auto) 6.4 % (1.0-6.0) H 06/28/17 06:51 Eos % (Auto) 2.7 % (1.5-5.0) 06/28/17 06:51 Baso % (Auto) 0.6 % (0.0-3.0) 06/28/17 06:51 Gran # 3.35 (1.4-6.5) 06/28/17 06:51 Lymph # 1.3 (1.2-3.4) 06/28/17 06:51 [place] # 0.3 (0.1-0.6) 06/28/17 06:51 Eos # 0.1 (0.0-0.7) 06/28/17 06:51 Baso # 0.03 K/mm3 (0.0-2.0) 06/28/17 06:51 Sodium 139 mmol/L (132-148) 06/28/17 06:51 Potassium 3.8 mmol/L (3.6-5.0) 06/28/17 06:51 Chloride 107 mmol/L (98-107) 06/28/17 06:51 Carbon Dioxide 26 mmol/L (21-33) 06/28/17 06:51 Anion Gap 10 (10-20) 06/28/17 06:51 BUN 6 mg/dL (7-21) L 06/28/17 06:51 Creatinine 0.7 mg/dL (0.5-1.4) 06/28/17 06:51 Est GFR ( Amer) > 60 06/28/17 06:51 Est GFR (Non-Af Amer) > 60 06/28/17 06:51 POC Glucose (mg/dL) 131 mg/dL (65-110) H 06/28/17 11:24 Random Glucose 76 mg/dL (70-110) 06/28/17 06:51 Calcium 8.1 mg/dL (8.4-10.5) L 06/28/17 06:51 Total Bilirubin 0.2 mg/dL (0.2-1.3) 06/28/17 06:51 AST 27 U/L (14-36) 06/28/17 06:51 ALT 25 U/L (7-56) 06/28/17 06:51 Alkaline Phosphatase 38 U/L (38-126) D 06/28/17 06:51 Total Protein 5.1 g/dL (5.8-8.3) L 06/28/17 06:51 Albumin 2.9 g/dL (3.0-4.8) L 06/28/17 06:51 Globulin 2.2 gm/dL 06/28/17 06:51 Albumin/Globulin Ratio 1.3 (1.1-1.8) 06/28/17 06:51 Lipase 41 U/L (23-300) 06/26/17 16:30 Urine Color Yellow (YELLOW) 06/26/17 16:00 Urine Appearance Sl cloudy (CLEAR) 06/26/17 16:00 Urine pH 6.0 (4.7-8.0) 06/26/17 16:00 Ur Specific [place] >= 1.030 (1.005-1.035) 06/26/17 16:00 Urine Protein Negative mg/dL (<30 mg/dL) 06/26/17 16:00 Urine Glucose (UA) Negative mg/dL (NEGATIVE) 06/26/17 16:00 Urine Ketones 40 mg/dL (NEGATIVE) H 06/26/17 16:00 Urine Blood Small (NEGATIVE) H 06/26/17 16:00 Urine Nitrate Negative (NEGATIVE) 06/26/17 16:00 Urine Bilirubin Small (NEGATIVE) H 06/26/17 16:00 Urine Urobilinogen 0.2 E.U./dL (<1 E.U./dL) 06/26/17 16:00 Ur Leukocyte Esterase Negative Dixie/uL (NEGATIVE) 06/26/17 16:00 Urine RBC 2 - 5 /hpf (0-2) 06/26/17 16:00 Urine WBC 1 - 3 /hpf (0-6) 06/26/17 16:00 Ur Epithelial Cells 3 - 4 /hpf (0-5) 06/26/17 16:00 Urine Bacteria Many (NEG) 06/26/17 16:00 Attending/Attestation - Attestation I have personally seen and examined this patient.: Yes I have fully participated in the care of the patient.: Yes I have reviewed all pertinent clinical information, including history, physical exam and plan: Yes Notes (Text): I have seen and examined the patient at bedside. Agree with the above note with the following additions/ exceptions: Briefly this is 42 year old female with history of TIA, recurrent hypoglycemia and gastritis who was admitted for epigastric pain, nause, vomiting, diarrhea and found to have colitis on CT scan.GI consult appreciated. Patient is able to tolerate the diet.She will be sent home on cipro and flagyl. Upon discharge patient will follow up with Dr Mazin Garcia. Dr Robyn Chakraborty
--- NOTE | 2017-06-28 05:29 | CON ---
GASTROENTEROLOGY CONSULTATION CONSULT DATE: 06/27/2017 REQUESTING PHYSICIAN: Dr. Chakraborty. REASON FOR CONSULT: I have been asked to see this 42-year-old female who is admitted to the hospital with several days of lower abdominal cramps, nausea, vomiting, and diarrhea. This started about two days ago. The patient has had similar attacks over the last few years. A CT scan of the abdomen and pelvis performed in the emergency room showed some mural thickening of the distal small bowel as well as ascending colon with some mesenteric edema adjacent to be mural thickening of the small bowel. The patient denies any recent travel or ingestion of any unusual foods. She currently states that she has not had any further diarrhea in the last 2 days and her abdominal cramps are less. She does admit to some fullness and cramping after taking liquid diet earlier today. PAST MEDICAL HISTORY: Notable for episodes of "gastritis," questionable history of CVA without any permanent focal deficits. SOCIAL HISTORY: She smokes anywhere from a half pack to pack of cigarettes per day. FAMILY HISTORY: Noncontributory. PHYSICAL EXAMINATION: GENERAL: Well-developed female lying in bed in no acute distress. VITAL SIGNS: Reveal temperature of 97.8, blood pressure 116/85, heart rate of 63. HEENT: Reveal sclerae to be white. Oral mucosa is moist. NECK: Supple. CHEST: Reveal lungs to be clear. HEART: Exam reveals regular rate and rhythm. ABDOMEN: Soft. Mild diffuse tenderness. No rebound. No guarding. EXTREMITIES: Show no edema. LABORATORY DATA: Reveal on 06/26/2017, white blood cell count 9.5, hemoglobin 14.1. Chemistries reveal normal electrolytes. IMPRESSION: A 42-year-old female with two days of abdominal cramps, nausea, vomiting, and diarrhea. I suspect that this is an acute gastroenteritis. She does have mural thickening of the distal small bowel and ascending colon with adjacent mesenteric edema adjacent to the small bowel. RECOMMENDATIONS: 1. We will check stool for C and S, ova, and parasites, C. diff. 2. Advance to a low-fat lactose-free diet as tolerated. 3. Would try and avoid morphine as this can cause further nausea and small bowel ileus. Varghese Del Rio MD [facility] # [id number]
[2017-06-28] MEDS: Sodium Chloride 0.9% 1,000 ML IV SCH (06:17)
[2017-06-28 07:10] LABS: BASO # 0.03 K/mm3 (0.0-2.0); BASO % 0.6 % (0.0-3.0); EOS # 0.1 (0.0-0.7); EOS % 2.7 % (1.5-5.0); GRAN # 3.35 (1.4-6.5); GRAN % 64.9 % (50.0-68.0); HEMATOCRIT 35.2 % (36.0-48.0); LYMPH # 1.3 (1.2-3.4); LYMPH % 25.4 % (22.0-35.0); MEAN CELL VOLUME 85.4 fl (80.0-105.0); MEAN CORPUSCULAR HEMOGLOBIN 27.7 pg (25.0-35.0); MEAN CORPUSCULAR HGB CONC 32.4 g/dl (31.0-37.0); MEAN PLATELET VOLUME 10.8 fl (7.0-11.0); MONO # 0.3 (0.1-0.6); MONO % 6.4 % (1.0-6.0); RED CELL DISTRIBUTION WIDTH 13.3 % (11.5-14.5); WHITE BLOOD COUNT 5.2 10^3/ul (4.5-11.0)
[2017-06-28 07:39] VITALS: BP 118/84; PULSE 69; RESP 18; TEMP 97.8
[2017-06-28 07:39] LABS: ALB/GLOB RATIO 1.3 (1.1-1.8); ALKALINE PHOSPHATASE 38 U/L (38-126); ALT/SGPT 25 U/L (7-56); AST/SGOT 27 U/L (14-36); BILIRUBIN,TOTAL 0.2 mg/dL (0.2-1.3); BLOOD UREA NITROGEN 6 mg/dL (7-21); CALCIUM 8.1 mg/dL (8.4-10.5); CARBON DIOXIDE 26 mmol/L (21-33); CHLORIDE 107 mmol/L (98-107); GFR AFRICAN-AMERICAN > 60; GLUCOSE,RANDOM 76 mg/dL (70-110); POTASSIUM 3.8 mmol/L (3.6-5.0); SODIUM 139 mmol/L (132-148); TOTAL PROTEIN 5.1 g/dL (5.8-8.3)
== END 2017-06-28 13:13 | disposition home or self-care (01) ==
LOC: ED 15:27 → ERH 20:06 → 5RNO 21:16 → OBSVTOIN 06-27 17:17 → INTOOBSV 06-27 17:17
PROVIDERS: ADMIT Internal Medicine; ATTEND Hospitalist
DX: K52.9 Noninfective gastroenteritis and colitis, unspecified (principal); K29.70 Gastritis, unspecified, without bleeding; R10.13 Epigastric pain; N83.209 Unspecified ovarian cyst, unspecified side; E16.2 Hypoglycemia, unspecified; F17.210 Nicotine dependence, cigarettes, uncomplicated; J45.909 Unspecified asthma, uncomplicated; Z86.73 Personal history of transient ischemic attack (TIA), and cerebral infarction without residual deficits
CPT/HCPCS: 36415; 74177; 80053; 81001; 82948; 83690; 85025; 87040; 96361; 96365; 96372; 96375; 99285; G0378; J0744; J1644; J1885; J2270; J7040; Q9967

== ENCOUNTER 2018-09-18 10:50 | Emergency (ER) | payer MEDICAID ==
--- NOTE | 2018-09-18 11:27 | ED PDOC ---
Arrival/HPI - General Chief Complaint: Back Pain Time Seen by Provider: 09/18/18 11:15 Historian: Patient - History of Present Illness Narrative History of Present Illness (Text): 43 year old female with past medical history of COPD presents to the emergency department complaining of left-sided thoracic muscle spasm x 3 hours. Patient was playing with her cat when she reached too far and caused a muscle spasm in her back. This type of pain has happened to the patient before with past similar muscle spasms. Not taking any medication for pain. Pain is worse with movement. Unable to lift her left arm above her head. Denies fever, chills, chest pain, numbness, seizures, sinus congestion, ear pain, sore throat, palpitations, diaphoresis, calf pain, calf, swelling, SOB, cough, or any other associated symptoms. Past Medical History - Provider Review Nursing Documentation Reviewed: Yes - Infectious Disease Hx of Infectious Diseases: None - Tetanus Immunization Tetanus Immunization: Unknown - Cardiac Hx Cardiac Disorders: No - Pulmonary Hx Respiratory Disorders: Yes Hx Asthma: Yes - Neurological Hx Neurological Disorder: No - HEENT Hx HEENT Disorder: No Hx Blind: No - Renal Hx Renal Disorder: No - Endocrine/Metabolic Hx Endocrine Disorders: No - Hematological/Oncological Hx Blood Disorders: No - Integumentary Hx Dermatological Disorder: No - Musculoskeletal/Rheumatological Hx Musculoskeletal Disorders: No - Gastrointestinal Hx Gastrointestinal Disorders: Yes Hx Gastritis: Yes - Genitourinary/Gynecological Hx Genitourinary Disorders: No - Psychiatric Hx Psychophysiologic Disorder: No Hx Substance Use: No Family/Social History - Physician Review Nursing Documentation Reviewed: Yes Family/Social History: No Known Family HX Smoking Status: Light Smoker < 10 Cigarettes Daily Hx Alcohol Use: No Hx Substance Use: No Allergies/Home Meds Allergies/Adverse Reactions: Allergies Penicillins Adverse Reaction (Verified 09/18/18 11:10) VOMITING Review of Systems - Physician Review All systems were reviewed & negative as marked: Yes - Review of Systems Constitutional: Normal. absent: Fatigue, Weight Change, Fevers, Night Sweats, Other Eyes: Normal. absent: Vision Changes, Photophobia, Eye Pain, Other ENT: Normal. absent: Hearing Changes, Tinnitus, TMJ Pain, Voice Changes, Sore Throat, Rhinorrhea, Epistaxis, Sinus Congestion, Other Respiratory: Normal. absent: SOB, Cough, Sputum, Wheezing, Other Cardiovascular: Normal. absent: Chest Pain, Palpitations, Edema, Calf Pain, BOONE, Orthopnea, SY, Syncope, Other Gastrointestinal: Normal. absent: Abdominal Pain, Stool Changes, Constipation, Diarrhea, Nausea, Vomiting, Appetite Changes, Hematochezia, Hematemesis, Anorexia, Food Intolerance, Other Genitourinary Female: Normal. absent: Dysuria, Frequency, Hematuria, Urine Output Changes, Vaginal Bleeding, Vaginal Discharge, Other Musculoskeletal: Back Pain (left). absent: Neck Pain Skin: Normal. absent: Rash, Pruritis, Skin Lesions, Laceration, Abscess, Ulcer, Cellulitis, Other Neurological: Normal. absent: Headache, Dizziness, Focal Weakness, Gait Changes, Speech Changes, SC, Facial Droop, DE, Disequilibrium, SE, Seizure, Other Endocrine: Normal Hemo/Lymphatic: Normal Psychiatric: Normal Physical Exam Vital Signs Reviewed: Yes Vital Signs Temp Pulse Resp BP Pulse Ox 09/18/18 11:08 97.9 F 64 18 137/88 98 Temperature: Afebrile Blood Pressure: Normal Pulse: Regular Respiratory Rate: Normal Appearance: Positive for: Well-Appearing, Non-Toxic, Uncomfortable Pain Distress: None Mental Status: Positive for: Alert and Oriented X 3 - Systems Exam Head: Present: Atraumatic, Normocephalic Pupils: Present: PERRL Extroacular Muscles: Present: EOMI Conjunctiva: Present: Normal Mouth: Present: Moist Mucous Membranes Nose (External): Present: Atraumatic Nose (Internal): Present: Normal Inspection Neck: Present: Normal Range of Motion. No: Meningeal Signs, MIDLINE TENDERNESS, Lymphadenopathy Respiratory/Chest: Present: Clear to Auscultation, Good Air Exchange. No: Respiratory Distress, Accessory Muscle Use Cardiovascular: Present: Regular Rate and Rhythm, Normal S1, S2, Peripheal Pulses Present. No: Murmurs Abdomen: Present: Normal Bowel Sounds. No: Tenderness, Distention, Peritoneal Signs, Other (pulsatile mass) Back: Present: Normal Inspection, Paraspinal Tenderness (point tenderness left thoracic), Other (left thoracic paraspinal palpable muscle spasm). No: CVA Tenderness Upper Extremity: Present: Normal Inspection, NORMAL PULSES, Neurovascularly Intact, Capillary Refill < 2s, Other (full strength bilaterallly). No: Cyanosis, Edema, Normal ROM (decreased secondary to muscle spasm) Lower Extremity: Present: Normal Inspection, NORMAL PULSES, Normal ROM, Neurovascularly Intact, Capillary Refill < 2 s, Other (full strength bilaterallly). No: Edema Neurological: Present: GCS=15, CN II-XII Intact, Speech Normal, Motor Func Grossly Intact, Normal Sensory Function, Gait Normal, Memory Normal Skin: Present: Warm, Dry, Normal Color. No: Rashes, Other (ecchymosis ) Lymphatic: No: Cervical Adenopathy Psychiatric: Present: Alert, Oriented x 3, Normal Insight, Normal Concentration, Normal Affect, Normal Mood Medical Decision Making ED Course and Treatment: Initial Plan: * Toradol * Flexeril * Reassess and Disposition Patient reports complete resolution of pain after medication, asking for discharge home. Diagnostic testing results and plan of care discussed with patient, and strict instructions given regarding prescriptions, importance of follow up, and signs to return to Emergency Department, to include SOB, chest pain, worsening pain, or any other new/worsening symptoms. Patient verbalizes understanding of discussion. Patient A&Ox3, ambulating with steady gait, stable for discharge home. Disposition/Present on Arrival - Present on Arrival Any Indicators Present on Arrival: No History of DVT/PE: No History of Uncontrolled Diabetes: No Urinary Catheter: No History of Decub. Ulcer: No History Surgical Site Infection Following: None - Disposition Have Diagnosis and Disposition been Completed?: Yes Diagnosis: Muscle spasm Disposition: HOME/ ROUTINE Disposition Time: 14:00 Condition: IMPROVED Discharge Instructions (ExitCare): Muscle Spasms (DC) Additional Instructions: Take flexeril every 12 hours as needed for pain Take ibuprofen every 8 hours as needed for pain Followup with primary doctor within 2 days Followup with orthopedics within 2 days Return to ER for new/worsening symptoms Prescriptions: Cyclobenzaprine [Flexeril] 5 mg PO Q12H PRN #10 tab PRN Reason: spasm Ibuprofen [Motrin Tab] 600 mg PO Q8H PRN #30 tab PRN Reason: Pain, Moderate (4-7) Referrals: Syd Valiente DO [Staff Provider] - Follow up with primary Forms: [employer] (Lao), WORK NOTE
[2018-09-18 14:16] VITALS: BP 128/76; PULSE 78; RESP 17; TEMP 98; O2SAT 97
== END 2018-09-18 14:15 | disposition home or self-care (01) ==
LOC: ED 10:50
DX: M62.830 Muscle spasm of back (principal); F17.210 Nicotine dependence, cigarettes, uncomplicated
CPT/HCPCS: 96372; 99282; J1885